=== PATIENT | male | born 1970 | race Caucasian/White ===

== ENCOUNTER 2018-11-15 06:10 | Day surgery (SDC) | payer OTHER ==
[2018-11-15] MEDS ORDERED: FENTAnyl 50 MCG/ML VIAL (09:09)
[2018-11-15] MEDS ORDERED: MIDAZOLAM 1 MG/ML 2 ML INJ ×2 (09:10)
== END 2018-11-15 11:14 | disposition home or self-care (01) ==
LOC: GIL 06:10
DX: K64.8 Other hemorrhoids (principal); D12.8 Benign neoplasm of rectum
CPT/HCPCS: 45380; 88305